=== PATIENT | female | born 1985 | race Two or more races ===

== ENCOUNTER 2017-08-31 17:23 | Emergency (ER) | payer OTHER ==
[~2017-08-31] VITALS: Ht 154.9 cm; Wt 92.8 kg
[2017-08-31 18:41] LABS: APPEARANCE CLEAR ((CLEAR)); BILIRUBIN NEGATIVE; BLOOD NEGATIVE; COLOR YELLOW ((YELLOW)); GLUCOSE (STRIP) NEGATIVE; KETONES NEGATIVE; LEUKOCYTES SMALL; NITRITE NEGATIVE; PROTEIN (STRIP) NEGATIVE; SPECIFIC GRAVITY 1.015 (1.000-1.030); UROBILINOGEN 0.2 MG/DL (0.2-1.0)
[2017-08-31 18:47] LABS: HEMATOCRIT 42.8 % (36.0-46.0); HEMOGLOBIN 14.8 G/DL (11.9-15.5); MCH 29.7 PG (29.0-34.0); MCHC 34.6 G/DL (30.0-36.0); MCV 85.8 FL (83-99); PLATELET COUNT 312 K/uL (156-360); RBC DIS.WIDTH-CV 12.1 % (11.8-14.6); RBC DIS.WIDTH-SD 37.9 % (39-53); RED BLOOD COUNT 4.99 M/uL (3.80-5.20); WHITE BLOOD COUNT 14.2 K/uL (4.1-10.2)
[2017-08-31 19:04] LABS: BACTERIA RARE /HPF; EPITHELIAL CELLS RARE /HPF; MUCUS NONE SEEN /LPF; RED BLOOD CELLS 0-5 /HPF (0-5); UCUL ADDED? YES; WHITE BLOOD CELLS 15-20 /HPF (0-5)
[2017-08-31 19:15] LABS: ALBUMIN 4.3 g/dL (3.2-4.8); CHLORIDE 103 mEq/L (99-109); POTASSIUM 3.9 mEq/L (3.7-5.4); SODIUM 137 mEq/L (136-147)
[2017-08-31 19:17] LABS: GLUCOSE 89 mg/dL (70-99); TOTAL PROTEIN 7.8 g/dL (6.4-8.3)
[2017-08-31 19:19] LABS: TOTAL BILIRUBIN 0.4 mg/dL (0.0-1.0)
[2017-08-31 19:21] LABS: ALKALINE PHOSPHATASE 91 IU/L (3-129); CREATININE 0.8 mg/dL (0.6-1.3)
[2017-08-31 19:22] LABS: UREA NITROGEN (BUN) 13 mg/dL (9-23)
[2017-08-31 19:23] LABS: AST (GOT) 16 IU/L (2-34)
[2017-08-31 19:24] LABS: ALT (GPT) 15 IU/L (3-49)
[2017-08-31 19:27] LABS: GFR ESTIMATE (CALCULATED) > 59 mL/min/
[2017-08-31 19:29] LABS: QUANTITATIVE HCG 11201.8 MIU/ML
[2017-09-01] VITALS: BP 129/81
== END 2017-09-01 00:01 | disposition home or self-care (01) ==
LOC: EME 17:23
DX: O26.891 Other specified pregnancy related conditions, first trimester (principal); R10.2 Pelvic and perineal pain; O99.111 Other diseases of the blood and blood-forming organs and certain disorders involving the immune mechanism complicating pregnancy, first trimester; D68.2 Hereditary deficiency of other clotting factors; O99.511 Diseases of the respiratory system complicating pregnancy, first trimester; J45.909 Unspecified asthma, uncomplicated; Z3A.01 Less than 8 weeks gestation of pregnancy; Z91.040 Latex allergy status
CPT/HCPCS: 76801; 80053; 81003; 84702; 85027; 86900; 86901; 87086; 99281; 99284

== ENCOUNTER 2017-09-11 04:23 | Emergency (ER) | payer OTHER ==
[~2017-09-11] VITALS: Ht 154.9 cm; Wt 92.7 kg
[2017-09-11 05:39] LABS: CHLORIDE 105 mEq/L (99-109); POTASSIUM 4.2 mEq/L (3.7-5.4); SODIUM 136 mEq/L (136-147)
[2017-09-11 05:41] LABS: BASOPHIL (%) 0.3 % (0-1); EOSINOPHIL (%) 1.6 % (0-5); EOSINOPHIL COUNT 0.3 K/uL (0-0.3); GLUCOSE 100 mg/dL (70-99); HEMATOCRIT 38.3 % (36.0-46.0); HEMOGLOBIN 13.4 G/DL (11.9-15.5); IMMATURE GRANULOCYTE (%) 0.6 % (0.0-0.7); LYMPHOCYTE (%) 17.8 % (15-42); LYMPHOCYTE COUNT 2.8 K/uL (1.0-2.8); MCV 85.7 FL (83-99); MONOCYTE (%) 7.3 % (3-12); MONOCYTE COUNT 1.1 K/uL (0-0.8); NEUTROPHIL (%) 72.4 % (45-76); NEUTROPHIL COUNT 11.3 K/uL (1.8-6.4); PLATELET COUNT 292 K/uL (156-360); RBC DIS.WIDTH-CV 11.9 % (11.8-14.6); RBC DIS.WIDTH-SD 37.1 % (39-53); RED BLOOD COUNT 4.47 M/uL (3.80-5.20); WHITE BLOOD COUNT 15.6 K/uL (4.1-10.2)
[2017-09-11 05:45] LABS: CREATININE 0.7 mg/dL (0.6-1.3); GFR ESTIMATE (CALCULATED) > 59 mL/min/
[2017-09-11 05:46] LABS: UREA NITROGEN (BUN) 6 mg/dL (9-23)
[2017-09-11 06:05] LABS: APPEARANCE CLEAR ((CLEAR)); BILIRUBIN NEGATIVE; BLOOD LARGE; COLOR YELLOW ((YELLOW)); GLUCOSE (STRIP) NEGATIVE; KETONES NEGATIVE; LEUKOCYTES MODERATE; NITRITE NEGATIVE; PROTEIN (STRIP) NEGATIVE; SPECIFIC GRAVITY 1.009 (1.000-1.030); UROBILINOGEN 0.2 MG/DL (0.2-1.0)
[2017-09-11 06:13] LABS: QUANTITATIVE HCG 92660.2 MIU/ML
[2017-09-11 06:16] LABS: BACTERIA RARE /HPF; EPITHELIAL CELLS RARE /HPF; MUCUS TRACE /LPF; RED BLOOD CELLS 30-40 /HPF (0-5); UCUL ADDED? YES; WHITE BLOOD CELLS 20-30 /HPF (0-5)
[2017-09-11 06:32] LABS: INTER. NORMALIZED RATIO 1.1
[2017-09-11 06:35] LABS: PTT 25.3 SEC (25-37)
[2017-09-11 07:59] VITALS: BP 114/66
== END 2017-09-11 08:01 | disposition home or self-care (01) ==
LOC: EME → EDBD 04:23 → EME 08:01
PROVIDERS: Emergency Medicine
DX: O20.0 Threatened abortion (principal); Z3A.01 Less than 8 weeks gestation of pregnancy; O99.281 Endocrine, nutritional and metabolic diseases complicating pregnancy, first trimester; D68.2 Hereditary deficiency of other clotting factors; Z79.01 Long term (current) use of anticoagulants; O99.511 Diseases of the respiratory system complicating pregnancy, first trimester; J45.909 Unspecified asthma, uncomplicated; Z91.040 Latex allergy status
CPT/HCPCS: 76801; 80048; 81003; 84702; 85025; 85610; 85730; 86850; 86900; 86901; 87086; 99281; 99284

== ENCOUNTER 2017-09-30 00:07 | Emergency (ER) | payer OTHER ==
[~2017-09-30] VITALS: Ht 154.9 cm; Wt 90.9 kg
[2017-09-30 00:39] LABS: APPEARANCE CLOUDY ((CLEAR)); BILIRUBIN NEGATIVE; BLOOD LARGE; GLUCOSE (STRIP) NEGATIVE; KETONES NEGATIVE; LEUKOCYTES TRACE; NITRITE NEGATIVE; PROTEIN (STRIP) 100; SPECIFIC GRAVITY 1.015 (1.000-1.030); UROBILINOGEN 0.2 MG/DL (0.2-1.0)
[2017-09-30 01:02] LABS: COLOR RED ((YELLOW))
[2017-09-30 01:05] LABS: BACTERIA NONE SEEN /HPF; EPITHELIAL CELLS NONE SEEN /HPF; MUCUS NONE SEEN /LPF; RED BLOOD CELLS TNTC /HPF (0-5); UCUL ADDED? YES
[2017-09-30 03:05] VITALS: BP 131/74
== END 2017-09-30 03:06 | disposition home or self-care (01) ==
LOC: EME 00:07
PROVIDERS: Emergency Medicine
DX: O20.0 Threatened abortion (principal); R30.0 Dysuria; Z3A.10 10 weeks gestation of pregnancy
CPT/HCPCS: 76801; 81003; 84702; 87086; 99281; 99284

== ENCOUNTER 2017-10-08 11:34 | Emergency (ER) | payer OTHER ==
[~2017-10-08] VITALS: Ht 152.4 cm; Wt 87.4 kg
[2017-10-08 12:02] LABS: HEMATOCRIT 37.9 % (36.0-46.0); HEMOGLOBIN 13.2 G/DL (11.9-15.5); MCH 29.9 PG (29.0-34.0); MCHC 34.8 G/DL (30.0-36.0); MCV 85.7 FL (83-99); PLATELET COUNT 299 K/uL (156-360); RBC DIS.WIDTH-CV 12.6 % (11.8-14.6); RBC DIS.WIDTH-SD 38.8 % (39-53); RED BLOOD COUNT 4.42 M/uL (3.80-5.20); WHITE BLOOD COUNT 14.4 K/uL (4.1-10.2)
[2017-10-08 12:11] LABS: CHLORIDE 106 mEq/L (99-109); SODIUM 138 mEq/L (136-147)
[2017-10-08 12:13] LABS: GLUCOSE 91 mg/dL (70-99)
[2017-10-08 12:16] LABS: SERUM ETHYL ALCOHOL < 10 mg/dL
[2017-10-08 12:17] LABS: CREATININE 0.7 mg/dL (0.6-1.3); GFR ESTIMATE (CALCULATED) > 59 mL/min/
[2017-10-08 12:18] LABS: UREA NITROGEN (BUN) 6 mg/dL (9-23)
[2017-10-08] MEDS ORDERED: ATARAX,VISTARIL25 MG PO (13:27)
[2017-10-08 14:01] VITALS: BP 115/78
== END 2017-10-08 14:02 | disposition home or self-care (01) ==
LOC: EME 11:34
DX: O99.341 Other mental disorders complicating pregnancy, first trimester (principal); F43.25 Adjustment disorder with mixed disturbance of emotions and conduct; Z3A.11 11 weeks gestation of pregnancy; O99.511 Diseases of the respiratory system complicating pregnancy, first trimester; J45.909 Unspecified asthma, uncomplicated; Z91.040 Latex allergy status
CPT/HCPCS: 80048; 81025; 85027; 90839; 99281; 99285; G0480